=== PATIENT | male | born 1960 | race Caucasian/White ===

== ENCOUNTER → 2018-03-10 | Day surgery (SDC) | payer BC ==
[~2018-03-10] MED LIST: ASPIRIN81 MG; FENTANYL CITRATE/PF 100MCG/2 ML INJ ONE; FISH OIL 1,0001 EAC2; GARLIC1 EAC1; IRON; MIDAZOLAM HCL 2 MG/2 ML VIAL ONE; MULTI-VITAMIN1 EACH; OR PHACO EYE KIT ONE; PREOP PHACO EYE KIT ONE
[2018-03-10 13:30] VITALS: BP 121/77
== END | disposition home or self-care (01) ==
LOC: OR 10:14
PROVIDERS: ATTEND Ophthalmology
DX: H25.12 Age-related nuclear cataract, left eye (principal); Z86.69 Personal history of other diseases of the nervous system and sense organs; E78.5 Hyperlipidemia, unspecified; J30.9 Allergic rhinitis, unspecified; Z79.82 Long term (current) use of aspirin
CPT/HCPCS: 66984; J2250; V2632

== ENCOUNTER → 2018-03-24 | Day surgery (SDC) | payer BC ==
[2018-03-24 14:00] VITALS: BP 110/71
== END | disposition home or self-care (01) ==
LOC: OR 11:17
PROVIDERS: ATTEND Ophthalmology
DX: H25.11 Age-related nuclear cataract, right eye (principal); J45.909 Unspecified asthma, uncomplicated; Z79.82 Long term (current) use of aspirin
CPT/HCPCS: 66984; J2250; V2632